=== PATIENT | male | born 1950 | race Caucasian/White ===

== ENCOUNTER → 2024-03-20 18:32 | Outpatient (REF) | payer MEDICARE, OTHER, SELFPAY | LOC: MRI 18:32 | PROVIDERS: ATTENDING PHYSICIAN Orthopaedic Surgery; FAMILY PHYSICIAN Nurse Practitioner Family | DX: M25.511 Pain in right shoulder (principal) | CPT/HCPCS: 73221 ==

== ENCOUNTER → 2025-07-16 06:45 | Outpatient (REF) | payer MEDICARE, OTHER, SELFPAY ==
[2025-07-16 10:14] LABS: C-Reactive Protein < 5.00 mg/L (0.0-10.00)
[2025-07-18 06:34] LABS: CCP Antibody IgG/IgA 12 Units (0-19)
[2025-07-18 16:56] LABS: ANA, IgG Reflex to HEp-2 None Detected (None Detected)
== END ==
LOC: HWLAB 06:45
PROVIDERS: ATTENDING PHYSICIAN Nurse Practitioner Family
DX: M79.10 Myalgia, unspecified site (principal)
CPT/HCPCS: 36415; 85652; 86038; 86140; 86200; 86430; 86618